=== PATIENT | female | born 2000 | race Caucasian/White ===

== ENCOUNTER 2018-04-11 09:19 | Emergency (ER) | payer OTHER ==
[~2018-04-11 09:19] MED LIST: EMTRICITABINE/TENOFOVIR 200MG/300MG TAB PO SCH; RALTEGRAVIR 400 MG TAB PO SCH
[2018-04-11 09:26] VITALS: BP 123/99
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
[2018-04-11] MEDS ORDERED: ONDANSETRON DISINTEGRATING 4 MG TAB PO ONE (10:58)
[2018-04-11] MEDS ORDERED: IBUPROFEN 600 MG TAB PO ONE (10:58)
[2018-04-11] MEDS ORDERED: LEVONORGESTREL 1.5 MG TAB PO ONE (10:58)
[2018-04-11] MEDS ORDERED: AZITHROMYCIN 250 MG TAB PO ONE (10:58)
[2018-04-11 13:53] LABS: PLATELET COUNT 307 10^3/uL (150-400)
[2018-04-11 14:02] LABS: HEPATITIS B SURFACE ANTIGEN NEGATIVE (NEGATIVE)
[2018-04-11 14:19] LABS: HEPATITIS C ANTIBODY TOTAL NEGATIVE (NEGATIVE)
[2018-04-11] MEDS ORDERED: RALTEGRAVIR 400 MG TAB PO ONE (14:36)
[2018-04-11] MEDS ORDERED: EMTRICITABINE/TENOFOVIR 200MG/300MG TAB PO ONE (14:38)
[2018-04-12] MEDS ORDERED: EMTRICITABINE/TENOFOVIR 200MG/300MG TAB PO ONE (14:36)
== END 2018-04-11 15:35 | disposition home or self-care (01) ==
LOC: EEVIPCON 09:19 → SANE 15:35
DX: T74.21XA Adult sexual abuse, confirmed, initial encounter (principal); Y07.59 Other non-family member, perpetrator of maltreatment and neglect; Y99.9 Unspecified external cause status
CPT/HCPCS: G0472; J0696